=== PATIENT | female | born 1955 | race Caucasian/White ===

== ENCOUNTER → 2023-03-21 | Outpatient (CLI) | payer MEDICARE ==
[2023-03-21 13:48] LABS: Basophils % (A) 1 %; Eosinophils # (A) 0.1 k/uL (0-0.7); Eosinophils % (A) 3 %; HCT 41.7 % (34.0-46.0); HGB 13.6 gm/dL (11.4-16.0); Lymphocytes # (A) 1.5 k/uL (1.0-4.8); Lymphocytes % (A) 29 %; MCH 30.8 pg (25.0-35.0); MCHC 32.6 g/dL (31.0-37.0); MCV 94.3 fL (80.0-100.0); Mean Platelet Volume 7.7; Monocytes # (A) 0.4 k/uL (0-1.0); Monocytes % (A) 8 %; Neutrophils # (A) 3.1 k/uL (1.3-7.7); Neutrophils % (A) 59 %; Platelet Count 221 k/uL (150-450); RBC 4.43 m/uL (3.80-5.40); RDW 12.6 % (11.5-15.5); WBC 5.3 k/uL (3.8-10.6)
[2023-03-21 14:51] LABS: RBC Morphology Normal
[2023-03-21 21:17] LABS: Albumin 4.8 d/dL (3.8-4.9); Protein, Total 7.6 d/dL (6.2-8.2)
[2023-03-21 21:29] LABS: Blood Urea Nitrogen 12.2 mg/dL (9.0-27.0); Chloride 102 mmol/L (96-109); Glucose 139 mg/dL (70-110); Potassium 4.3 mmol/L (3.5-5.5); Sodium 140 mmol/L (135-145)
[2023-03-24 16:38] LABS: Gamma Globulin 1.52 d/dL (0.70-1.50)
--- NOTE | 2023-04-10 08:14 | MM ---
Reason for Exam: Screening (asymptomatic). Last mammogram was performed 5 year(s) and 3 month(s) ago. Patient History: Menarche at age 14. First Full-Term at age 26. Postmenopausal. Maternal aunt had breast cancer. Risk Values: Kendy 5 year model risk: 1.9%. NCI Lifetime model risk: 6.7%. Prior Study Comparison: 01/08/2018 Bilateral Screening Mammogram, [place]. Tissue Density: The breast tissue is heterogeneously dense. This may lower the sensitivity of mammography. Findings: Analyzed By CAD. There is no suspicious group of microcalcifications or new suspicious mass in either breast. Overall Assessment: Benign, BI-RAD 2 Management: Screening Mammogram of both breasts in 1 year. . Patient should continue monthly self-breast exams. A clinical breast exam by your physician is recommended on an annual basis. This exam should not preclude additional follow-up of suspicious palpable abnormalities. Note on Kendy scores and lifetime risk: 1. A Kendy score greater than 3% is considered moderate risk. If this is the case, consider specialist referral to assess eligibility for a risk reducing agent. 2. If overall lifetime risk for the development of breast cancer is 20% or higher, the patient may qualify for future screening with alternating mammogram and breast MRI. Electronically signed and approved by: Jose Francisco Stein M.D. Radiologis
== END | disposition home or self-care (01) ==
LOC: RADMAMWWP 12:32
PROVIDERS: ATTEND Internal Medicine
DX: Z12.31 Encounter for screening mammogram for malignant neoplasm of breast (principal); E83.52 Hypercalcemia; R73.9 Hyperglycemia, unspecified; Z78.0 Asymptomatic menopausal state; Z80.3 Family history of malignant neoplasm of breast
CPT/HCPCS: 77063; 77067; 80048; 82306; 82652; 83036; 83970; 84165; 85025

== ENCOUNTER → 2023-03-21 | Outpatient (CLI) | payer MEDICARE ==
--- NOTE | 2023-03-21 13:46 | XR ---
EXAMINATION TYPE: XR chest 1V DATE OF EXAM: 03/21/2023 COMPARISON: NONE HISTORY: Hypercalcemia TECHNIQUE: Single frontal view of the chest is obtained. FINDINGS: There is no focal air space opacity, pleural effusion, or pneumothorax seen. The cardiac silhouette size is within normal limits. The osseous structures are intact. Biapical pleural thicke abbie. IMPRESSION: No acute process.
== END | disposition home or self-care (01) ==
LOC: RADXRMAIN 13:26
PROVIDERS: ATTEND Internal Medicine
DX: E83.52 Hypercalcemia (principal)
CPT/HCPCS: 71045

== ENCOUNTER → 2023-03-24 | Outpatient (CLI) | payer MEDICARE | END | disposition home or self-care (01) | LOC: LABWHC1 11:46 | PROVIDERS: ATTEND Internal Medicine | DX: E83.52 Hypercalcemia (principal) | CPT/HCPCS: 36415; 82330; 83970 ==

== ENCOUNTER → 2024-06-18 | Outpatient (CLI) | payer MEDICARE ==
--- NOTE | 2024-06-18 18:10 | BD ---
EXAMINATION TYPE: Axial Bone Density DATE OF EXAM: 06/18/2024 CLINICAL HISTORY: 68 years old Female. ICD-10 CODE: Z78.0 POST W/O HRT , Z78.0 Height: 67.5 Weight: 187 FRAX RISK QUESTIONS: Family History (Parent hip fracture): yes History of Fracture in Adulthood: no Secondary Osteoporosis: no RISK FACTORS HISTORY OF: Surgery to Spine/Hip(right/left)/Wrist (right/left): no MEDICATIONS: Thyroid Medications: yes Which medication: Synthroid How Lon+ years Osteoporosis Medications: no EXAM MEASUREMENTS: Bone mineral densitometry was performed using the [employer] System. Bone mineral density as measured about the Lumbar spine is: ----- L1-L4(G/cm2): 1.240 T Score Values are as follows: ----- L1: 0.0 ----- L2: 0.4 ----- L3: 0.6 ----- L4: 0.8 ----- L1-L4: 0.5 Z Score Values are as follows: ----- L1: 1.0 ----- L2: 1.4 ----- L3: 1.6 ----- L4: 1.8 ----- L1-L4: 1.5 Bone mineral density baseline Bone mineral density about the R hip (g/cm2): 0.954 Bone mineral density about the L hip (g/cm2): 0.967 T Score values are as follows: -----R Neck: -1.4 -----L Neck: -1.3 -----R Total: -0.4 -----L Total: -0.3 Z Score values are as follows: -----R Neck: -0.3 -----L Neck: -0.1 -----R Total: 0.4 -----L Total: 0.5 Bone mineral density baseline FRAX%s: The graph provided illustrates a 9.1% chance for a major osteoporotic fx and a 1.0% chance fo r the hips probability for fx in 10 years time. IMPRESSION: Osteopenia (T Score between -2.5 and -1). There is slightly increased risk of fracture and the patient may be considered for treatment. Re-Screen 2-5 years. NOTE: T-SCORE=SD OF THE YOUNG ADULT MEAN. [facility], , 06/18/2024 6:07 PM
--- NOTE | 2024-06-21 07:42 | MM ---
Reason for Exam: Screening (asymptomatic). Last mammogram was performed 1 year(s) and 3 month(s) ago. Patient History: Menarche at age 14. First Full-Term at age 26. Postmenopausal. Patient has history of breast feeding. Maternal aunt had breast cancer. Risk Values: Kendy 5 year model risk: 1.9%. NCI Lifetime model risk: 6.4%. Prior Study Comparison: 01/08/2018 Bilateral Screening Mammogram, [place]. 03/21/2023 Bilateral MG 3D screening mammo w/cad, [facility]. Tissue Density: The breasts are heterogeneously dense, which may obscure small masses. Findings: Analyzed By CAD. There is no suspicious group of microcalcifications or new suspicious mass in either breast. Overall Assessment: Benign, BI-RAD 2 Management: Screening Mammogram of both breasts in 1 year. . Patient should continue monthly self-breast exams. A clinical breast exam by your physician is recommended on an annual basis. This exam should not preclude additional follow-up of suspicious palpable abnormalities. Note on Kendy scores and lifetime risk: 1. A Kendy score greater than 3% is considered moderate risk. If this is the case, consider specialist referral to assess eligibility for a risk reducing agent. 2. If overall lifetime risk for the development of breast cancer is 20% or higher, the patient may qualify for future screening with alternating mammogram and breast MRI. [facility], , 06/21/2024 7:38 AM. Electronically signed and approved by: Angus Rodríguez M.D. Radiologis
== END | disposition home or self-care (01) ==
LOC: RADBDWWP 14:31
PROVIDERS: ATTEND Internal Medicine
DX: Z12.31 Encounter for screening mammogram for malignant neoplasm of breast (principal); Z13.820 Encounter for screening for osteoporosis; Z78.0 Asymptomatic menopausal state; Z80.3 Family history of malignant neoplasm of breast; R92.333 Mammographic heterogeneous density, bilateral breasts; M85.89 Other specified disorders of bone density and structure, multiple sites
CPT/HCPCS: 77063; 77067; 77080